=== PATIENT | female | born 1970 | race Caucasian/White ===

== ENCOUNTER 2019-01-15 16:22 | Emergency (ER) | payer SELFPAY ==
[2019-01-15] MEDS ORDERED: methylPREDNISolone Sodium Succinate 125 MG/2 ML SDV IM ONE (16:57)
[2019-01-15] MEDS ORDERED: Albuterol/Ipratropium 3.0-0.5 MG/3 ML Neb Soln NEB ONE (16:57)
--- NOTE | 2019-01-15 16:59 | EDM.PDOC ---
ED HPI GENERAL MEDICAL PROBLEM - General Chief Complaint: Respiratory Problem Stated Complaint: SHORTNESS OF BREATH Time Seen by Provider: 01/15/19 16:58 Source of Information: Reports: Patient - History of Present Illness INITIAL COMMENTS - FREE TEXT/NARRATIVE: HISTORY AND PHYSICAL: History of present illness: [Patient with asthma presents with shortness of breath or wheeze, she has been out of her HFA inhaler for a week No fever nausea vomiting chills sweats no chest pain headache dizziness palpitation no bowel or urine symptoms ] Review of systems: As per history of present illness and below otherwise all systems reviewed and negative. Past medical history: As per history of present illness and as reviewed below otherwise noncontributory. Surgical history: As per history of present illness and as reviewed below otherwise noncontributory. Social history: No reported history of drug or alcohol abuse. Family history: As per history of present illness and as reviewed below otherwise noncontributory. Physical exam: HEENT: Atraumatic, normocephalic, pupils reactive, negative for conjunctival pallor or scleral icterus, mucous membranes moist, throat clear, neck supple, nontender, trachea midline. Lungs: Clear to auscultation, breath sounds equal bilaterally, chest nontender. Post DuoNeb and Solu-Medrol Heart: S1S2, regular, negative for clicks, rubs, or JVD. Abdomen: Soft, nondistended, nontender. Negative for masses or hepatosplenomegaly. Negative for costovertebral tenderness. Pelvis: Stable nontender. Genitourinary: Deferred. Rectal: Deferred. Extremities: Atraumatic, negative for cords or calf pain. Neurovascular unremarkable. Neuro: Awake, alert, oriented. Cranial nerves II through XII unremarkable. Cerebellum unremarkable. Motor and sensory unremarkable throughout. Exam nonfocal. Diagnostics: [Chest 1 view ] Therapeutics: [DuoNeb Solu-Medrol ] HFA Prednisone Impression: [ asthma exacerbation Medication noncompliance ] Definitive disposition and diagnosis as appropriate pending reevaluation and review of above. - Related Data Allergies Allergy/AdvReac Type Severity Reaction Status Date / Time No Known Allergies Allergy Verified 01/15/19 16:46 Home Meds: Home Meds Albuterol [Proventil HFA] 2 puff INH Q4HR PRN 01/15/19 [History] Albuterol [Proventil Neb Soln] 1 vial INH ASDIRECTED PRN 01/15/19 [History] Past Medical History Respiratory History: Reports: Asthma - Past Surgical History Female Surgical History: Reports: Section Other Musculoskeletal Surgeries/Procedures:: L hip and femur repair Social & Family History - Tobacco Use Smoking Status *Q: Former Smoker Used Tobacco, but Quit: Yes Month/Year Tobacco Last Used: 2016 - Recreational Drug Use Recreational Drug Use: No ED ROS GENERAL - Review of Systems Review Of Systems: See Below ED EXAM, GENERAL - Physical Exam Exam: See Below Course - Vital Signs Last Recorded V/S: Last Vital Signs Temp 97.8 F 01/15/19 16:44 Pulse 88 01/15/19 17:45 Resp 20 01/15/19 17:45 BP 149/89 H 01/15/19 17:45 Pulse Ox 95 01/15/19 17:45 - Orders/Labs/Meds Meds: Medications Discontinued Medications Generic Name Dose Route Start Last Admin Trade Name Freq PRN Reason Stop Dose Admin Albuterol/Ipratropium 3 ml 01/15/19 16:57 01/15/19 17:12 Duoneb 3.0-0.5 Mg/3 Ml NEB 01/15/19 16:58 3 ml ONETIME ONE Administration Methylprednisolone Sodium Succinate 125 mg 01/15/19 16:57 01/15/19 17:17 Solu-Medrol IM 01/15/19 16:58 125 mg ONETIME ONE Administration Departure - Departure Time of Disposition: 06:59 Disposition: Home, Self-Care 01 Clinical Impression: Asthma - Discharge Information Instructions: Asthma, Adult, [id number] Referrals: PCP,None [Primary Care Provider] - Forms: ED Department Discharge
--- NOTE | 2019-01-15 17:49 | CR ---
INDICATION: Short of breath. CHEST, ONE VIEW An AP radiograph of the chest was performed. Comparison: No previous studies are currently available for comparison. The lungs appear clear and no pleural effusions are identified. The cardiomediastinal silhouette and pulmonary vasculature appear normal, as do the visualized bones. IMPRESSION: No acute intrathoracic abnormality identified. BALDOMERO WADE MD [employer] Dictated by: Vitor Wade MD @ 01/15/2019 17:46:38 (Electronically Signed)
== END 2019-01-15 17:45 | disposition home or self-care (01) ==
LOC: MW.ED 16:22
DX: J45.901 Unspecified asthma with (acute) exacerbation (principal); Z87.891 Personal history of nicotine dependence
CPT/HCPCS: 71045; 71045-26; 94640; 96372; 99285-25; J2930; J7620-GY

== ENCOUNTER 2019-02-16 14:35 | Emergency (ER) | payer SELFPAY ==
[2019-02-16] MEDS ORDERED: Albuterol/Ipratropium 3.0-0.5 MG/3 ML Neb Soln ONE (14:44)
[2019-02-16] MEDS ORDERED: Albuterol/Ipratropium 3.0-0.5 MG/3 ML Neb Soln NEB ONE (14:44)
--- NOTE | 2019-02-16 14:45 | EDM.PDOC ---
ED HPI GENERAL MEDICAL PROBLEM - General Chief Complaint: Respiratory Problem Stated Complaint: UNABLE TO BREATH Time Seen by Provider: 02/16/19 14:41 - History of Present Illness INITIAL COMMENTS - FREE TEXT/NARRATIVE: HISTORY AND PHYSICAL: History of present illness: Patient's 48-year-old black female with history of asthma who states she has misplaced her inhaler and comes in with wheezing shortness of breath she denies other concern no fever chills nausea vomiting or chest pain Review of systems: As per history of present illness and below otherwise all systems reviewed and negative. Past medical history: As per history of present illness and as reviewed below otherwise noncontributory. Surgical history: As per history of present illness and as reviewed below otherwise noncontributory. Social history: No reported history of drug or alcohol abuse. Family history: As per history of present illness and as reviewed below otherwise noncontributory. Physical exam: HEENT: Atraumatic, normocephalic, pupils reactive, negative for conjunctival pallor or scleral icterus, mucous membranes moist, throat clear, neck supple, nontender, trachea midline. Lungs: Slightly diminished rare end expiratory wheezing noted bilaterally no crackles, breath sounds equal bilaterally, chest nontender. Heart: S1S2, regular, negative for clicks, rubs, or JVD. Abdomen: Soft, nondistended, nontender. Negative for masses or hepatosplenomegaly. Negative for costovertebral tenderness. Pelvis: Stable nontender. Genitourinary: Deferred. Rectal: Deferred. Extremities: Atraumatic, negative for cords or calf pain. Neurovascular unremarkable. Neuro: Awake, alert, oriented. Cranial nerves II through XII unremarkable. Cerebellum unremarkable. Motor and sensory unremarkable throughout. Exam nonfocal. Diagnostics: None Therapeutics: Albuterol ipratropium nebulizer Impression: #1 asthmatic exacerbation #2 medication refill Definitive disposition and diagnosis as appropriate pending reevaluation and review of above. - Related Data Allergies Allergy/AdvReac Type Severity Reaction Status Date / Time No Known Allergies Allergy Verified 01/15/19 16:46 Home Meds: Home Meds Albuterol [Proventil HFA] 2 puff INH Q4HR PRN 01/15/19 [History] Albuterol [Proventil Neb Soln] 1 vial INH ASDIRECTED PRN 01/15/19 [History] Past Medical History Respiratory History: Reports: Asthma - Past Surgical History Female Surgical History: Reports: Section Other Musculoskeletal Surgeries/Procedures:: L hip and femur repair ED ROS GENERAL - Review of Systems Review Of Systems: ROS reveals no pertinent complaints other than HPI. ED EXAM, GENERAL - Physical Exam Exam: See Below (Dictation) Departure - Departure Time of Disposition: 14:44 Disposition: Home, Self-Care 01 Condition: Good Clinical Impression: Acute asthma, Medication refill - Discharge Information Referrals: PCP,Unknown [Primary Care Provider] - Additional Instructions: The following information is given to patients seen in the emergency department who are being discharged to home. This information is to outline your options for follow-up care. We provide all patients seen in our emergency department with a follow-up referral. The need for follow-up, as well as the timing and circumstances, are variable depending upon the specifics of your emergency department visit. If you don't have a primary care physician on staff, we will provide you with a referral. We always advise you to contact your personal physician following an emergency department visit to inform them of the circumstance of the visit and for follow-up with them and/or the need for any referrals to a consulting specialist. The emergency department will also refer you to a specialist when appropriate. This referral assures that you have the opportunity for followup care with a specialist. All of these measure are taken in an effort to provide you with optimal care, which includes your followup. Under all circumstances we always encourage you to contact your private physician who remains a resource for coordinating your care. When calling for followup care, please make the office aware that this follow-up is from your recent emergency room visit. If for any reason you are refused follow-up, please contact the [facility] emergency department at and asked to speak to the emergency department charge nurse. Albuterol as prescribed follow-up primary medical doctor as needed as discussed return as needed as discussed
== END 2019-02-16 15:09 | disposition home or self-care (01) ==
LOC: MW.ED 14:35
DX: J45.901 Unspecified asthma with (acute) exacerbation (principal); Z76.0 Encounter for issue of repeat prescription; Z79.899 Other long term (current) drug therapy
CPT/HCPCS: 99284-25; J7620-GY

== ENCOUNTER 2020-03-21 09:33 | Emergency (ER) | payer BC ==
[2020-03-21] MEDS ORDERED: Ketorolac 15 MG/ML SDV IVPUSH ONE (10:13)
[2020-03-21] MEDS ORDERED: Prochlorperazine 10 MG/2 ML SDV IVPUSH ONE (10:14)
[2020-03-21] MEDS ORDERED: HYDROmorphone 2 MG/ML Syringe IVPUSH ONE (10:14)
--- NOTE | 2020-03-21 10:17 | EDM.PDOC ---
ED [facility] GENERAL MEDICAL PROBLEM - General Chief Complaint: Abdominal Pain Stated Complaint: STOMACH PAIN Time Seen by Provider: 03/21/20 09:39 - History of Present Illness INITIAL COMMENTS - FREE TEXT/NARRATIVE: HISTORY AND PHYSICAL: History of present illness: This 49-year-old female with a past medical history of BMI greater than 45, presents emergency department complaining of a sudden onset of left upper quadrant abdominal pain. This began at 5:30 AM and awoke her from her sleep as she was about ready to get up for work this morning. She denies any nausea, vomiting or diarrhea. She states that the pain is a throbbing sensation and is in the left upper quadrant and also may be in the left lower quadrant. It does not go to the back. No vaginal or urinary symptoms. No hematemesis, hematochezia or melena. The patient does smoke and occasionally drinks alcohol. She denies use of drugs. No other associated signs or symptoms. No other modifying, aggravating or alleviating factors. Review of systems: A 10-point review of systems, other than pertinent positives and negatives as stated per HPI, is otherwise negative. Past medical history: As per history of present illness and as reviewed below otherwise noncontributory. Surgical history: As per history of present illness and as reviewed below otherwise noncontributory. Social history: No reported history of drug or alcohol abuse. Family history: As per history of present illness and as reviewed below otherwise noncontributory. Physical exam: VITAL SIGNS: Reviewed. GENERAL: Appears to be in acute pain and rubs the left upper quadrant. Ot herwise appears nontoxic and stable. Heart rate appears normal. This is on the monitor. HEAD: No signs of head trauma. EYES: Pupils are equal. Extraocular motions intact. EARS: Hearing grossly intact. MOUTH: Oropharynx is normal. NECK: No adenopathy, no JVD. CHEST: Chest with clear breath sounds bilaterally. No wheezes, rales, or rhonchi. CARDIAC: Regular rate and rhythm. Normal S1 and S2, without murmurs, gallops, or rubs. VASCULAR: Peripheral pulses normal and equal in all extremities. ABDOMEN: Soft, left upper quadrant tenderness, no rebound or guarding, no pulsatile masses. MUSCULOSKELETAL: Good range of motion of all major joints. Extremities without clubbing, cyanosis or edema. NEUROLOGIC EXAM: Alert and oriented x 3. No focal sensory or motor deficits. Speech normal. Follows commands. PSYCHIATRIC: Mood normal. SKIN: No rash or lesions. Initial Differential Diagnosis & Plan: The differential diagnosis would include appendicitis, cholecystitis, pyelonephritis, pancreatitis, mesenteric infarction, diverticulitis, small bowel obstruction, volvulus, and ACS. Suspicious for constipation versus diverticulitis. This could also be secondary to urolithiasis. I will obtain a CT scan, labs, and reevaluate. Definitive disposition and diagnosis as appropriate pending reevaluation and review of above. abdomen Pain Score (Numeric/FACES): 10 - Related Data Allergies Allergy/AdvReac Type Severity Reaction Status Date / Time No Known Allergies Allergy Verified 03/21/20 09:55 Home Meds: Home Meds Albuterol [Proventil HFA] 2 puff INH Q4HR PRN 01/15/19 [History] Albuterol [Proventil Neb Soln] 1 vial INH ASDIRECTED PRN 01/15/19 [History] Diclofenac Potassium [Cataflam] 50 mg PO BID #60 tab 03/21/20 [Rx] Morphine 15 mg PO Q4H PRN 3 Days #7 tab 03/21/20 [Rx] Psyllium Husk (With Sugar) [Metamucil Powder] 2 tbsp PO TID 14 Days #1042 powder 03/21/20 [Rx] Sulfamethoxazole/Trimethoprim [Bactrim Ds Tablet] 1 each PO BID 14 Days #7 tablet 03/21/20 [Rx] Past Medical History Respiratory History: Reports: Asthma Genitourinary History: Reports: None [employer] History: Reports: Musculoskeletal History: Reports: None - Past Surgical History Respiratory Surgical History: Reports: None Female Surgical History: Reports: Section Other Musculoskeletal Surgeries/Procedures:: L hip and femur repair Social & Family History - Family History Family Medical History: Noncontributory - Tobacco Use Smoking Status *Q: Current Some Day Smoker Years of Tobacco use: 2 Packs/Tins Daily: 0.1 - Caffeine Use Caffeine Use: Reports: None - Recreational Drug Use Recreational Drug Use: No ED ROS GENERAL - Review of Systems Review Of Systems: See Below (noted) ED EXAM, GI/ABD - Physical Exam Exam: See Below (noted) Course - Vital Signs Last Recorded V/S: Last Vital Signs Temp 96.2 F L 03/21/20 09:47 Pulse 73 03/21/20 11:15 Resp 17 03/21/20 11:15 BP 140/95 H 03/21/20 11:15 Pulse Ox 94 L 03/21/20 11:15 - Orders/Labs/Meds Orders: Active Orders 24 hr Category Date Time Status EKG 12 Lead [EKG Documentation Completion] [RC] STAT Care 03/21/20 10:13 Active UA RFX MARYANN AND CULT IF INDIC [URIN] Stat Lab 03/21/20 10:13 Ordered Labs: Laboratory Tests 03/21/20 03/21/20 Range/Units 10:19 10:19 WBC 8.04 (4.0-11.0) K/uL RBC 4.91 (4.30-5.90) M/uL Hgb 13.7 (12.0-16.0) g/dL Hct 42.7 (36.0-46.0) % MCV 87.0 (80.0-98.0) fL MCH 27.9 (27.0-32.0) pg MCHC 32.1 (31.0-37.0) g/dL RDW Std Deviation 45.8 (28.0-62.0) fl RDW Coeff of Graciela 14 (11.0-15.0) % Plt Count 218 (150-400) K/uL MPV 10.60 (7.40-12.00) fL Neut % (Auto) 60.9 (48.0-80.0) % Lymph % (Auto) 28.0 (16.0-40.0) % Holt % (Auto) 8.3 (0.0-15.0) % Eos % (Auto) 2.6 (0.0-7.0) % Baso % (Auto) 0.2 (0.0-1.5) % Neut # (Auto) 4.9 (1.4-5.7) K/uL Lymph # (Auto) 2.3 (0.6-2.4) K/uL Holt # (Auto) 0.7 (0.0-0.8) K/uL Eos # (Auto) 0.2 (0.0-0.7) K/uL Baso # (Auto) 0.0 (0.0-0.1) K/uL Nucleated RBC % 0.0 /100WBC Nucleated RBCs # 0 K/uL Sodium 137 (136-145) mmol/L Potassium 4.0 (3.5-5.1) mmol/L Chloride 102 (98-107) mmol/L Carbon Dioxide 27.2 (21.0-32.0) mmol/L BUN 8 (7.0-18.0) mg/dL Creatinine 0.8 (0.6-1.0) mg/dL Est Cr Clr Drug Dosing 71.14 mL/min Estimated GFR (MDRD) > 60.0 ml/min Glucose 68 L (74-106) mg/dL Calcium 9.0 (8.5-10.1) mg/dL Total Bilirubin 0.3 (0.2-1.0) mg/dL AST 16 (15-37) IU/L ALT 16 (14-63) IU/L Alkaline Phosphatase 76 (46-116) U/L Troponin I < 0.050 (0.000-0.056) ng/mL Total Protein 7.0 (6.4-8.2) g/dL Albumin 3.3 L (3.4-5.0) g/dL Globulin 3.7 (2.6-4.0) g/dL Albumin/Globulin Ratio 0.9 (0.9-1.6) HCG, Quant 1.0 mIU/mL Meds: Medications Discontinued Medications Generic Name Dose Route Start Last Admin Trade Name Freq PRN Reason Stop Dose Admin Hydromorphone HCl 1 mg 03/21/20 10:14 03/21/20 10:34 [facility]/21[facility] 10[facility]15 1 mg ONETIME ONE Administration Ketorolac Tromethamine 15 mg 03/21/20 10:13 03/21/20 10:26 Toradol IVPUSH 03/21/20 10:14 15 mg ONETIME ONE Administration Prochlorperazine Edisylate 10 mg 03/21/20 10:14 03/21/20 10:36 Compazine IVPUSH 03/21/20 10:15 10 mg ONETIME ONE Administration Departure - Departure Time of Disposition: 12:10 Disposition: Home, Self-Care 01 Clinical Impression: Urolithiasis, Sigmoid diverticulitis - Discharge Information *PRESCRIPTION DRUG MONITORING PROGRAM REVIEWED*: Not Applicable *COPY OF PRESCRIPTION DRUG MONITORING REPORT IN PATIENT ESTELITA: Not Applicable Referrals: Julisa Parisi NP [Primary Care Provider] - Forms: ED Department Discharge Additional Instructions: The following information is given to patients seen in the emergency department who are being discharged to home. This information is to outline your options for follow-up care. We provide all patients seen in our emergency department with a follow-up referral. The need for follow-up, as well as the timing and circumstances, are variable depending upon the specifics of your emergency department visit. If you don't have a primary care physician on staff, we will provide you with a referral. We always advise you to contact your personal physician following an emergency department visit to inform them of the circumstance of the visit and for follow-up with them and/or the need for any referrals to a consulting specialist. The emergency department will also refer you to a specialist when appropriate. This referral assures that you have the opportunity for follow-up care with a specialist. All of these measure are taken in an effort to provide you with optimal care, which includes your follow-up. Thank you for coming to the [facility] urgency department for your care today. It was Dr. Doan's pleasure to take care of you. [facility] - Urology [address] [place] [address] [facility] - Primary Care [address] [place] [id number] [address] [place] [phone] You have a small kidney stone. This should pass on its own. I have given you medications for this. Please return for uncontrolled pain, vomiting or any other concerns. Your CT scan also shows mild diverticulitis. You require a follow-up colonoscopy to make sure that this is not cancer of the colon. Please see your doctor for this follow-up. Under all circumstances we always encourage you to contact your private physician who remains a resource for coordinating your care. When calling for follow-up care, please make the office aware that this follow-up is from your recent emergency room visit. If for any reason you are refused follow-up, please contact the [facility] Emergency Department at and asked to speak to the emergency department charge nurse. Sepsis Event Note (ED) - Evaluation Sepsis Screening Result: No Definite Risk - Focused Exam Vital Signs: Vital Signs Temp Pulse Resp BP Pulse Ox 03/21/20 11:15 73 17 140/95 H 94 L 03/21/20 10:00 83 18 166/92 H 95 03/21/20 09:47 96.2 F L 86 20 162/99 H 98 - My Orders Last 24 Hours: My Active Orders 03/21/20 10:13 EKG 12 Lead [EKG Documentation Completion] [RC] STAT UA RFX MARYANN AND CULT IF INDIC [URIN] Stat - Assessment/Plan Last 24 Hours: My Active Orders 03/21/20 10:13 EKG 12 Lead [EKG Documentation Completion] [RC] STAT UA RFX MARYANN AND CULT IF INDIC [URIN] Stat
[2020-03-21 11:12] LABS: BLOOD UREA NITROGEN,BUN 8 mg/dL (7.0-18.0); CARBON DIOXIDE,CO2 27.2 mmol/L (21.0-32.0); CHLORIDE,CL 102 mmol/L (98-107); GLUCOSE RANDOM 68 mg/dL (74-106); SODIUM,NA 137 mmol/L (136-145)
--- NOTE | 2020-03-21 11:31 | CT ---
CT abdomen and pelvis Technique: Multiple axial sections were obtained from above the dome of the diaphragm inferiorly through the pubic symphysis. Intravenous and oral contrast not utilized. Very small calcification is seen within the midabdomen questionably representing a partially obstructing mid left ureteral stone. This finding measures about 1.5 mm. No additional ureteral calculi are definitely seen. No renal calculi are seen. Visualized lung bases contain no focal abnormality. Liver shows no focal abnormality. Spleen appears within normal limits. Adrenal glands show no nodule. Pancreas shows no discrete abnormality. Aorta shows no aneurysm. Gallbladder contains no calcified gallstones. No retroperitoneal adenopathy or mesenteric abnormalities are seen. Fat-containing umbilical hernia is noted. Equivocal inflammatory change around a diverticula is seen within the sigmoid region. Difficult to exclude minimal diverticulitis. No additional pelvic finding is seen. Bone window settings were reviewed which show scattered degenerative change within the spine. Impression: 1. Questionable small 1.5 mm partially obstructing calculus within the mid left ureter. If patient has no correlating symptoms this could represent a superimposed small vascular calcification. 2. Questionable very mild diverticulitis within the sigmoid colon. Again, please correlate clinically. 3. Other findings which are not acute as noted above. Diagnostic code #3 This report was dictated in MDT
--- NOTE | 2020-03-21 12:18 | PCM.SN.2 ---
- Free Text/Narrative Note: 12 lead EKG interpretation Obtained: March 21, 2020 at 10:33 AM Rhythm: Sinus Rate: 77 [address] [place]: Normal Intervals: Normal ST/T Segments: Nonspecific T wave changes Interpretation: Sinus rhythm with nonspecific T wave changes
== END 2020-03-21 13:04 | disposition home or self-care (01) ==
LOC: MW.ED 09:33
DX: K57.32 Diverticulitis of large intestine without perforation or abscess without bleeding (principal); N20.1 Calculus of ureter; J45.909 Unspecified asthma, uncomplicated; F17.210 Nicotine dependence, cigarettes, uncomplicated; Z79.899 Other long term (current) drug therapy
CPT/HCPCS: 36415; 74176; 80053; 84484; 84702; 85025; 93005; 96374; 96375; 99284; J0780; J1170; J1885; 99283

== ENCOUNTER 2020-06-15 20:58 | Emergency (ER) | payer BC ==
[2020-06-15] MEDS ORDERED: Dicyclomine 10 MG Cap PO ONE (21:19)
[2020-06-15] MEDS ORDERED: Sodium Chloride 0.9% 10 ML Syringe FLUSH PRN (21:19)
[2020-06-15] MEDS ORDERED: Sodium Chloride 0.9% 2.5 ML Syringe FLUSH PRN (21:19)
[2020-06-15] MEDS ORDERED: Lactated Ringers 1,000 ML IV ONE (21:50)
[2020-06-15] MEDS ORDERED: Ondansetron 4 MG/2 ML SDV IVPUSH ONE (21:50)
[2020-06-15] MEDS ORDERED: Ketorolac 30 MG/ML SDV IVPUSH ONE (21:50)
--- NOTE | 2020-06-15 21:50 | EDM.PDOC ---
ED HPI GENERAL MEDICAL PROBLEM - General Chief Complaint: Abdominal Pain Stated Complaint: STOMACK PAIN Time Seen by Provider: 06/15/20 21:20 Source of Information: Reports: Patient History Limitations: Reports: No Limitations - History of Present Illness INITIAL COMMENTS - FREE TEXT/NARRATIVE: 49 yo F with history of diverticulitis, left-sided kidney stone presents with acute onset left flank pain that radiates to the left lower quadrant at 2 PM, described as throbbing, severe, rated 8/10, waxes and wanes, no alleviating or exacerbating factors. Associated with nausea, vomiting. She denies fever, chills, dysuria, hematuria, chest pain, shortness of breath. ROS: A 10-point review of systems, other than pertinent positives and negatives as stated per HPI, is otherwise negative Past medical history: No additional pertinent history Past Surgical history: No additional pertinent history Social history: No additional pertinent history Family history: No additional pertinent history PHYSICAL EXAM General: AOx4, GCS = 15, No distress, BMI 47 HEENT: dry mucous membrane Neck: supple, no meningismus, no Kernig or Brudzinski Cardiac: S1S2 RRR Respiratory: CTAB, no crackles or rales, no wheezing Abdomen: Soft, nontender, no rebound or guarding, nondistended, no pulsatile mass. Back: nontender Musculoskeletal: NVI distally, no deformity Neuro: No focal deficits, CN 2 - 12 WNL. Lower Abdomen Pain Score (Numeric/FACES): 8 - Related Data Allergies Allergy/AdvReac Type Severity Reaction Status Date / Time No Known Allergies Allergy Verified 06/15/20 21:18 Home Meds: Home Meds Albuterol [Proventil Neb Soln] 1 vial INH ASDIRECTED PRN 01/15/19 [History] Phenazopyridine [Pyridium] 100 mg PO TID PRN #15 tab 06/15/20 [Rx] cephALEXin [Keflex] 500 mg PO Q8H #15 cap 06/15/20 [Rx] Past Medical History - Past Health History Medical/Surgical History: Denies Medical/Surgical History Respiratory History: Reports: Asthma Genitourinary History: Reports: None REGISTERED MEDICAL ASSISTANT History: Reports: Musculoskeletal History: Reports: None - Infectious Disease History Infectious Disease History: Reports: None - Past Surgical History Respiratory Surgical History: Reports: None Female Surgical History: Reports: Section Other Musculoskeletal Surgeries/Procedures:: L hip and femur repair Social & Family History - Family History Family Medical History: No Pertinent Family History - Tobacco Use Tobacco Use Status *Q: Current Every Day Tobacco User Years of Tobacco use: 8 Packs/Tins Daily: 1 - Caffeine Use Caffeine Use: Reports: Coffee - Recreational Drug Use Recreational Drug Use: No ED ROS GENERAL - Review of Systems Review Of Systems: See Below (see dictation) ED EXAM, GENERAL - Physical Exam Exam: See Below (see dictation) Course - Vital Signs Last Recorded V/S: Last Vital Signs Temp 96.6 F L 06/15/20 21:19 Pulse 77 06/15/20 23:00 Resp 16 06/15/20 23:00 BP 134/89 06/15/20 23:00 Pulse Ox 95 06/15/20 23:00 - Orders/Labs/Meds Orders: Active Orders 24 hr Category Date Time Status Sodium Chloride 0.9% [Saline Flush] Med 06/15/20 21:19 Active 10 ml FLUSH ASDIRECTED PRN Sodium Chloride 0.9% [Saline Flush] Med 06/15/20 21:19 Active 2.5 ml FLUSH ASDIRECTED PRN cefTRIAXone [Rocephin in Dextrose,Iso-Osm 1 GM/50 ML] 1 Med 06/15/20 23:45 Ordered gm Premix Bag 1 bag IV ONETIME Saline Lock Insert [OM.PC] Stat Oth 06/15/20 21:19 Ordered Medication Orders Sodium Chloride (Saline Flush) 10 ml FLUSH ASDIRECTED PRN PRN Reason: Keep Vein Open Last Admin: 06/15/20 21:33 Dose: 10 ml Documented by: LASHAE Sodium Chloride (Saline Flush) 2.5 ml FLUSH ASDIRECTED PRN PRN Reason: Keep Vein Open Last Admin: 06/15/20 21:33 Dose: 2.5 ml Documented by: LASHAE Labs: Laboratory Tests 06/15/20 06/15/20 06/15/20 Range/Units 21:31 21:31 21:31 WBC 9.01 (4.0-11.0) K/uL RBC 5.07 (4.30-5.90) M/uL Hgb 14.5 (12.0-16.0) g/dL Hct 44.3 (36.0-46.0) % MCV 87.4 (80.0-98.0) fL MCH 28.6 (27.0-32.0) pg MCHC 32.7 (31.0-37.0) g/dL RDW Std Deviation 44.2 (28.0-62.0) fl RDW Coeff of Graciela 14 (11.0-15.0) % Plt Count 230 (150-400) K/uL MPV 10.00 (7.40-12.00) fL Neut % (Auto) 67.1 (48.0-80.0) % Lymph % (Auto) 24.4 (16.0-40.0) % [place] % (Auto) 7.0 (0.0-15.0) % Eos % (Auto) 1.3 (0.0-7.0) % Baso % (Auto) 0.2 (0.0-1.5) % Neut # (Auto) 6.0 H (1.4-5.7) K/uL Lymph # (Auto) 2.2 (0.6-2.4) K/uL [place] # (Auto) 0.6 (0.0-0.8) K/uL Eos # (Auto) 0.1 (0.0-0.7) K/uL Baso # (Auto) 0.0 (0.0-0.1) K/uL Nucleated RBC % 0.0 /100WBC Nucleated RBCs # 0 K/uL INR 1.05 Lactate 1.1 (0.20-2.00) mmol/L Sodium (136-145) mmol/L Potassium (3.5-5.1) mmol/L Chloride (98-107) mmol/L Carbon Dioxide (21.0-32.0) mmol/L BUN (7.0-18.0) mg/dL Creatinine (0.6-1.0) mg/dL Est Cr Clr Drug Dosing mL/min Estimated GFR (MDRD) ml/min Glucose (74-106) mg/dL Calcium (8.5-10.1) mg/dL Total Bilirubin (0.2-1.0) mg/dL AST (15-37) IU/L ALT (14-63) IU/L Alkaline Phosphatase (46-116) U/L Total Protein (6.4-8.2) g/dL Albumin (3.4-5.0) g/dL Globulin (2.6-4.0) g/dL Albumin/Globulin Ratio (0.9-1.6) Lipase (73-393) U/L HCG, Qual (NEG) Urine Color Urine Appearance Urine pH (5.0-8.0) Ur Specific [place] (1.001-1.035) Urine Protein (NEGATIVE) mg/dL Urine Glucose (UA) (NEGATIVE) mg/dL Urine Ketones (NEGATIVE) mg/dL Urine Occult Blood (NEGATIVE) Urine Nitrite (NEGATIVE) Urine Bilirubin (NEGATIVE) Urine Urobilinogen (<2.0) EU/dL Ur Leukocyte Esterase (NEGATIVE) Urine RBC (0-2/HPF) Urine WBC (0-5/HPF) Ur Epithelial Cells (NONE-FEW) Urine Bacteria (NEGATIVE) Urine Mucus (NONE-MOD) Urine HCG, Qual (NEGATIVE) 06/15/20 06/15/20 06/15/20 Range/Units 21:31 21:31 23:00 WBC (4.0-11.0) K/uL RBC (4.30-5.90) M/uL Hgb (12.0-16.0) g/dL Hct (36.0-46.0) % MCV (80.0-98.0) fL MCH (27.0-32.0) pg MCHC (31.0-37.0) g/dL RDW Std Deviation (28.0-62.0) fl RDW Coeff of Graciela (11.0-15.0) % Plt Count (150-400) K/uL MPV (7.40-12.00) fL Neut % (Auto) (48.0-80.0) % Lymph % (Auto) (16.0-40.0) % [place]rick % (Auto) (0.0-15.0) % Eos % (Auto) (0.0-7.0) % Baso % (Auto) (0.0-1.5) % Neut # (Auto) (1.4-5.7) K/uL Lymph # (Auto) (0.6-2.4) K/uL [place] # (Auto) (0.0-0.8) K/uL Eos # (Auto) (0.0-0.7) K/uL Baso # (Auto) (0.0-0.1) K/uL Nucleated RBC % /100WBC Nucleated RBCs # K/uL INR Lactate (0.20-2.00) mmol/L Sodium 139 (136-145) mmol/L Potassium 3.9 (3.5-5.1) mmol/L Chloride 100 (98-107) mmol/L Carbon Dioxide 28.6 (21.0-32.0) mmol/L BUN 4 L (7.0-18.0) mg/dL Creatinine 0.7 (0.6-1.0) mg/dL Est Cr Clr Drug Dosing 81.30 mL/min Estimated GFR (MDRD) > 60.0 ml/min Glucose 101 (74-106) mg/dL Calcium 8.9 (8.5-10.1) mg/dL Total Bilirubin 0.5 (0.2-1.0) mg/dL AST 14 L (15-37) IU/L ALT 17 (14-63) IU/L Alkaline Phosphatase 93 (46-116) U/L Total Protein 7.4 (6.4-8.2) g/dL Albumin 3.4 (3.4-5.0) g/dL Globulin 4.0 (2.6-4.0) g/dL Albumin/Globulin Ratio 0.9 (0.9-1.6) Lipase 46 L (73-393) U/L HCG, Qual NEGATIVE (NEG) Urine Color YELLOW Urine Appearance SLT CLOUDY Urine pH 8.5 H (5.0-8.0) Ur Specific [place] 1.015 (1.001-1.035) Urine Protein NEGATIVE (NEGATIVE) mg/dL Urine Glucose (UA) NEGATIVE (NEGATIVE) mg/dL Urine Ketones NEGATIVE (NEGATIVE) mg/dL Urine Occult Blood TRACE-INTACT H (NEGATIVE) Urine Nitrite NEGATIVE (NEGATIVE) Urine Bilirubin NEGATIVE (NEGATIVE) Urine Urobilinogen 0.2 (<2.0) EU/dL Ur Leukocyte Esterase MODERATE H (NEGATIVE) Urine RBC 1-3 (0-2/HPF) Urine WBC 25-30 (0-5/HPF) Ur Epithelial Cells RARE (NONE-FEW) Urine Bacteria FEW (NEGATIVE) Urine Mucus LIGHT (NONE-MOD) Urine HCG, Qual (NEGATIVE) 06/15/20 Range/Units 23:00 WBC (4.0-11.0) K/uL RBC (4.30-5.90) M/uL Hgb (12.0-16.0) g/dL Hct (36.0-46.0) % MCV (80.0-98.0) fL MCH (27.0-32.0) pg MCHC (31.0-37.0) g/dL RDW Std Deviation (28.0-62.0) fl RDW Coeff of Graciela (11.0-15.0) % Plt Count (150-400) K/uL MPV (7.40-12.00) fL Neut % (Auto) (48.0-80.0) % Lymph % (Auto) (16.0-40.0) % [place] % (Auto) (0.0-15.0) % Eos % (Auto) (0.0-7.0) % Baso % (Auto) (0.0-1.5) % Neut # (Auto) (1.4-5.7) K/uL Lymph # (Auto) (0.6-2.4) K/uL [place] # (Auto) (0.0-0.8) K/uL Eos # (Auto) (0.0-0.7) K/uL Baso # (Auto) (0.0-0.1) K/uL Nucleated RBC % /100WBC Nucleated RBCs # K/uL INR Lactate (0.20-2.00) mmol/L Sodium (136-145) mmol/L Potassium (3.5-5.1) mmol/L Chloride (98-107) mmol/L Carbon Dioxide (21.0-32.0) mmol/L BUN (7.0-18.0) mg/dL Creatinine (0.6-1.0) mg/dL Est Cr Clr Drug Dosing mL/min Estimated GFR (MDRD) ml/min Glucose (74-106) mg/dL Calcium (8.5-10.1) mg/dL Total Bilirubin (0.2-1.0) mg/dL AST (15-37) IU/L ALT (14-63) IU/L Alkaline Phosphatase (46-116) U/L Total Protein (6.4-8.2) g/dL Albumin (3.4-5.0) g/dL Globulin (2.6-4.0) g/dL Albumin/Globulin Ratio (0.9-1.6) Lipase (73-393) U/L HCG, Qual (NEG) Urine Color Urine Appearance Urine pH (5.0-8.0) Ur Specific [place] (1.001-1.035) Urine Protein (NEGATIVE) mg/dL Urine Glucose (UA) (NEGATIVE) mg/dL Urine Ketones (NEGATIVE) mg/dL Urine Occult Blood (NEGATIVE) Urine Nitrite (NEGATIVE) Urine Bilirubin (NEGATIVE) Urine Urobilinogen (<2.0) EU/dL Ur Leukocyte Esterase (NEGATIVE) Urine RBC (0-2/HPF) Urine WBC (0-5/HPF) Ur Epithelial Cells (NONE-FEW) Urine Bacteria (NEGATIVE) Urine Mucus (NONE-MOD) Urine HCG, Qual NEGATIVE (NEGATIVE) Meds: Medications Generic Name Dose Route Start Last Admin Trade Name Frenavarro PRN Reason Stop Dose Admin Sodium Chloride 10 ml 06/15/20 21:19 06/15/20 21:33 Saline Flush FLUSH 10 ml ASDIRECTED PRN Administration Keep Vein Open Sodium Chloride 2.5 ml 06/15/20 21:19 06/15/20 21:33 Saline Flush FLUSH 2.5 ml ASDIRECTED PRN Administration Keep Vein Open Discontinued Medications Generic Name Dose Route Start Last Admin Trade Name Freq PRN Reason Stop Dose Admin Dicyclomine HCl 20 mg 06/15/20 21:19 06/15/20 21:25 Bentyl PO 06/15/20 21:20 20 mg ONETIME ONE Administration Lactated Ringer's 1,000 mls @ 999 mls/hr 06/15/20 21:50 06/15/20 22:12 Ringers, Lactated IV 06/15/20 22:50 999 mls/hr .BOLUS ONE Administration Ketorolac Tromethamine 30 mg 06/15/20 21:50 06/15/20 22:12 Toradol IVPUSH 06/15/20 21:51 30 mg ONETIME ONE Administration Morphine Sulfate 4 mg 06/15/20 23:06 06/15/20 23:14 Morphine IVPUSH 06/15/20 23:07 4 mg ONETIME ONE Administration Ondansetron HCl 4 mg 06/15/20 21:50 06/15/20 22:12 Zofran IVPUSH 06/15/20 21:51 4 mg ONETIME ONE Administration - Re-Assessments/Exams Free Text/Narrative Re-Assessment/Exam: 06/15/20 23:45 After IVF and pain meds in the ER, the patient improved and is currently stable for discharge. I performed a repeat exam and did not appreciate new abnormal findings. Patient exhibits normal vital signs and has a normal gait on road test. I advised the patient to return to the ER for reevaluation if symptoms worsened, including fever, worsening pain, or any other worrisome symptoms. I instructed the patient to follow up with their PCP within 2-3 days. MEDICAL DECISION MAKING: I reviewed the patients past medical records, lab and radiographic findings. I discussed the case with the patient. My differential diagnosis included: UTI, pyelo, ureteralithiasis. Departure - Departure Time of Disposition: 23:46 Disposition: Home, Self-Care 01 Condition: Good Clinical Impression: Abdominal pain, UTI (urinary tract infection) - Discharge Information *PRESCRIPTION DRUG MONITORING PROGRAM REVIEWED*: Not Applicable *COPY OF PRESCRIPTION DRUG MONITORING REPORT IN PATIENT ESTELITA: Not Applicable Prescriptions: cephALEXin [Keflex] 500 mg PO Q8H #15 cap Phenazopyridine [Pyridium] 100 mg PO TID PRN #15 tab PRN Reason: Abdominal Pain Instructions: Antibiotic Medicine, Adult, [id number], Urinary Tract Infecti on, Adult Referrals: Julisa Parisi ENRICHMENT ASSISTANT [Primary Care Provider] - 1 Week Forms: ED Department Discharge Additional Instructions: The need for follow-up, as well as the timing and circumstances, are variable depending upon the specifics of your emergency department visit. If you don't have a primary care physician on staff, we will provide you with a referral. We always advise you to contact your personal physician following an emergency department visit to inform them of the circumstance of the visit and for follow-up with them and/or the need for any referrals to a consulting specialist. The emergency department will also refer you to a specialist when appropriate. This referral assures that you have the opportunity for follow-up care with a specialist. All of these measure are taken in an effort to provide you with optimal care, which includes your follow-up. Under all circumstances we always encourage you to contact your private physician who remains a resource for coordinating your care. When calling for follow-up care, please make the office aware that this follow-up is from your recent emergency room visit. If for any reason you are refused follow-up, please contact the [facility] Emergency Department at and asked to speak to the emergency department charge nurse. If you do not have a primary care doctor, please follow up with the clinics below within 3-5 days. [facility] - Primary [facility] [address] [place] [address] [place] [address] Sepsis Event Note (ED) - Evaluation Sepsis Screening Result: Possible Sepsis Risk - Focused Exam Vital Signs: Vital Signs Temp Pulse Resp BP Pulse Ox 06/15/20 23:00 77 16 134/89 95 06/15/20 22:18 73 14 163/106 H 96 06/15/20 21:19 96.6 F L 96 16 124/94 H 97 - My Orders Last 24 Hours: My Active Orders 06/15/20 21:19 Sodium Chloride 0.9% [Saline Flush] 10 ml FLUSH ASDIRECTED PRN Sodium Chloride 0.9% [Saline Flush] 2.5 ml FLUSH ASDIRECTED PRN Saline Lock Insert [OM.PC] Stat 06/15/20 23:45 cefTRIAXone [Rocephin in Dextrose,Iso-Osm 1 GM/50 ML] 1 gm Premix Bag 1 bag IV ONETIME - Assessment/Plan Last 24 Hours: My Active Orders 06/15/20 21:19 Sodium Chloride 0.9% [Saline Flush] 10 ml FLUSH ASDIRECTED PRN Sodium Chloride 0.9% [Saline Flush] 2.5 ml FLUSH ASDIRECTED PRN Saline Lock Insert [OM.PC] Stat 06/15/20 23:45 cefTRIAXone [Rocephin in Dextrose,Iso-Osm 1 GM/50 ML] 1 gm Premix Bag 1 bag IV ONETIME
[2020-06-15 21:58] LABS: BLOOD UREA NITROGEN,BUN 4 mg/dL (7.0-18.0); CARBON DIOXIDE,CO2 28.6 mmol/L (21.0-32.0); CHLORIDE,CL 100 mmol/L (98-107); GLUCOSE RANDOM 101 mg/dL (74-106); LIPASE 46 U/L (73-393); POTASSIUM,K 3.9 mmol/L (3.5-5.1); SODIUM,NA 139 mmol/L (136-145)
--- NOTE | 2020-06-15 22:45 | CT ---
INDICATION: Abdominal pain nausea and vomiting. COMPARISON: 21 March 2020. TECHNIQUE: Noncontrast images. FINDINGS: No nephrolithiasis. Normal appendix. Small fat filled umbilical hernia. Chronic enlarged stool impacted presumed diverticulum or mild chronic focal aneurysmal dilatation in the junction of descending and sigmoid colon. Rounded area has diameter roughly 2.5 cm (image 118 series 202). Left femoral intramedullary nail. Small amount of air in the urinary bladder presumably iatrogenic. There was also air in the bladder on the comparison CT. IMPRESSION: 1. No new findings to account for reported symptoms. 2. Air in the urinary bladder may be iatrogenic. Similar appearance seen on comparison. Clinical correlation recommended. Colovesicular is a consideration. 3. Focal contour deformity of the proximal sigmoid colon looks like stool impacted large diverticulum. No acute inflammation. Please note that all CT scans at this facility use dose modulation, iterative reconstruction, and/or weight-based dosing when appropriate to reduce radiation dose to as low as reasonably achievable. Dictated by Arie Yost MD @ Jun 15 2020 10:38PM Signed by Dr. Arie Yost @ Jun 15 2020 10:44PM
[2020-06-15] MEDS ORDERED: Morphine 4 MG/ML Syringe IVPUSH ONE (23:06)
[2020-06-15] MEDS ORDERED: cefTRIAXone 1 GM in Premix Bag 1 BAG IV ONE (23:45)
== END 2020-06-16 00:25 | disposition home or self-care (01) ==
LOC: MW.ED 20:58
DX: N39.0 Urinary tract infection, site not specified (principal); J45.909 Unspecified asthma, uncomplicated; F17.210 Nicotine dependence, cigarettes, uncomplicated
CPT/HCPCS: 36415; 74176; 80053; 81001; 81025; 83605; 83690; 84703; 85025; 85610; 96365; 96375; 99284; A9270; J0696; J1885; J2270; J2405; J7120; 99283

== ENCOUNTER 2021-07-19 11:46 | Emergency (ER) | payer SELFPAY ==
[2021-07-19] MEDS ORDERED: Ketorolac 60 MG/2 ML SDV IM ONE (12:20)
--- NOTE | 2021-07-19 12:49 | EDM.PDOC ---
ED HPI GENERAL MEDICAL PROBLEM - General Chief Complaint: Back Pain or Injury Stated Complaint: CHEST PAIN Time Seen by Provider: 07/19/21 11:54 Source of Information: Reports: Patient History Limitations: Reports: No Limitations - History of Present Illness INITIAL COMMENTS - FREE TEXT/NARRATIVE: HISTORY AND PHYSICAL: History of present illness: Patient is a 50-year-old female who presents emergency room today with concern of back spasm that moves across her chest has been ongoing for the past 3 days. Patient states that the pain is worse with movements but states that she cannot always get it to recreate. Patient states she first noticed it on [place] and has continued since. Patient denies any worsening or alleviating factors. Patient denies any health history and states she has not taken anything for her symptoms. Patient states that the reason she was concerned is because the spasms started involving her chest and she wanted to be sure she was not missing anything. Patient states that she does not feel like she can massage it but it does feel similar to any possible spasm but "different" at the same time. Patient denies fever, chills, shortness of breath, or cough. Denies headache, neck stiff ness, change in vision, syncope, or near syncope. Denies nausea, vomiting, abdominal pain, diarrhea, constipation, or dysuria. Has not noted any blood in urine or stool. Patient has been eating and drinking appropriately. Review of systems: As per history of present illness and below otherwise all systems reviewed and negative. Past medical history: As per history of present illness and as reviewed below otherwise noncontributory. Surgical history: As per history of present illness and as reviewed below otherwise noncontributory. Social history: See social history for further information Family history: As per history of present illness and as reviewed below otherwise noncontributory. Physical exam: General: Patient is alert, oriented, and in no acute distress. Patient sitting comfortably on exam table. Vitals stable and reviewed by me HEENT: Atraumatic, normocephalic, pupils equal and reactive bilaterally, negative for conjunctival pallor or scleral icterus, mucous membranes moist, throat clear, neck supple, nontender, trachea midline. No drooling or trismus noted. No meningeal signs. No hot potato voice noted. Lungs: Clear to auscultation, breath sounds equal bilaterally, chest nontender. Heart: S1S2, regular rate and rhythm without overt murmur Abdomen: Soft, nondistended, nontender. Negative for masses or hepatosplenom egaly. Negative for costovertebral tenderness. Pelvis: Stable nontender. Genitourinary: Deferred. Rectal: Deferred. Skin: Intact, warm, dry. No lesions or rashes noted. Extremities: No obvious deformity in the complete spine. No step-offs, crepitus, or point tenderness to palpation of the complete spine. Patient has full range of motion of the complete spine and bilateral upper and lower extremities without pain or difficulty. Otherwise, atraumatic, negative for cords or calf pain. Neurovascular unremarkable. Neuro: Awake, alert, oriented. Cranial nerves II through XII unremarkable. Cerebellum unremarkable. Motor and sensory unremarkable throughout. Exam nonfocal. Medical Decision Making: Patient is an otherwise healthy 50-year-old female who presents emergency room today with concern of possible back spasm radiating to the front of her chest x3 days. Upon arrival to the ED, patient is vitally stable and well-appearing on exam and exam is otherwise unremarkable. Patient did become concerned today as it began involving the chest will obtain cardiac evaluation, provide a dose of Toradol, and reassess patient. See Dr. Christopher's dictation for specific EKG interpretation. Otherwise, NSR without STEMI. Mild derangements of CBC and CMP are unremarkable. hCG negative. Troponin negative. Chest x-ray unremarkable. HEART score low risk. Upon reevaluation of patient, treatments vitally stable and comfortable throughout stay in ED. Strict return precautions thoroughly discussed with patient. Discussed importance for follow-up with a primary care provider. Voices understanding and is agreeable to plan of care. Denies any further questions or concerns at this time. Diagnostics: CBC, CMP, CXR, Trop, EKG Therapeutics: Toradol Prescription: None Impression: Atypical chest pain Muscle spasm Plan: 1. You can alternate ibuprofen and Tylenol as directed for pain and discomfort. 2. Follow-up with a primary care provider as discussed. Return to the ED as needed and as discussed. Definitive disposition and diagnosis as appropriate pending reevaluation and review of above. 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 ED EXAM, GENERAL - Physical Exam Exam: See Below (see dictation) Course - Vital Signs Last Recorded V/S: Last Vital Signs Temp 97.2 F 07/19/21 14:05 Pulse 80 07/19/21 14:05 Resp 18 07/19/21 14:05 BP 126/84 07/19/21 14:05 Pulse Ox 97 07/19/21 14:05 - Orders/Labs/Meds Labs: Laboratory Tests 07/19/21 07/19/21 07/19/21 Range/Units 12:53 12:53 12:53 WBC 7.16 (4.0-11.0) K/uL RBC 4.85 (4.30-5.90) M/uL Hgb 13.4 (12.0-16.0) g/dL Hct 41.8 (36.0-46.0) % MCV 86.2 (80.0-98.0) fL MCH 27.6 (27.0-32.0) pg MCHC 32.1 (31.0-37.0) g/dL RDW Std Deviation 45.7 (28.0-62.0) fl RDW Coeff of Graciela 15 (11.0-15.0) % Plt Count 237 (150-400) K/uL MPV 10.60 (7.40-12.00) fL Neut % (Auto) 61.5 (48.0-80.0) % Lymph % (Auto) 30.3 (16.0-40.0) % Hendry % (Auto) 5.7 (0.0-15.0) % Eos % (Auto) 2.2 (0.0-7.0) % Baso % (Auto) 0.3 (0.0-1.5) % Neut # (Auto) 4.4 (1.4-5.7) K/uL Lymph # (Auto) 2.2 (0.6-2.4) K/uL Hendry # (Auto) 0.4 (0.0-0.8) K/uL Eos # (Auto) 0.2 (0.0-0.7) K/uL Baso # (Auto) 0.0 (0.0-0.1) K/uL Nucleated RBC % 0.0 /100WBC Nucleated RBCs # 0 K/uL Sodium 141 (136-145) mmol/L Potassium 4.0 (3.5-5.1) mmol/L Chloride 104 (98-107) mmol/L Carbon Dioxide 31.2 (21.0-32.0) mmol/L BUN 7 (7.0-18.0) mg/dL Creatinine 0.6 (0.6-1.0) mg/dL Est Cr Clr Drug Dosing 93.82 mL/min Estimated GFR (MDRD) > 60.0 ml/min Glucose 84 (74-106) mg/dL Calcium 8.9 (8.5-10.1) mg/dL Total Bilirubin 0.4 (0.2-1.0) mg/dL AST 15 (15-37) IU/L ALT 15 (14-63) IU/L Alkaline Phosphatase 85 (46-116) U/L Troponin I < 0.050 (0.000-0.056) ng/mL Total Protein 7.1 (6.4-8.2) g/dL Albumin 3.1 L (3.4-5.0) g/dL Globulin 4.0 (2.6-4.0) g/dL Albumin/Globulin Ratio 0.8 L (0.9-1.6) HCG, Qual NEGATIVE (NEG) Meds: Medications Discontinued Medications Generic Name Dose Route Start Last Admin Trade Name Freq PRN Reason Stop Dose Admin Ketorolac Tromethamine 60 mg 07/19/21 12:20 07/19/21 13:09 Ketorolac 60 Mg/2 Ml Sdv IM 07/19/21 12:21 60 mg ONETIME ONE Administration Departure - Departure Time of Disposition: 13:56 Disposition: Home, Self-Care 01 Clinical Impression: Atypical chest pain, Muscle spasm - Discharge Information Instructions: Muscle Cramps and Spasms, Chest Wall Pain, [id number] Forms: ED Department Discharge Additional Instructions: The following information is given to patients seen in the emergency department who are being discharged to home. This information is to outline your options for follow-up care. We provide all patients seen in our emergency department with a follow-up referral. The need for follow-up, as well as the timing and circumstances, are variable depending upon the specifics of your emergency department visit. If you don't have a primary care physician on staff, we will provide you with a referral. We always advise you to contact your personal physician following an emergency department visit to inform them of the circumstance of the visit and for follow-up with them and/or the need for any referrals to a consulting specialist. The emergency department will also refer you to a specialist when appropriate. This referral assures that you have the opportunity for follow-up care with a specialist. All of these measure are taken in an effort to provide you with optimal care, which includes your follow-up. Under all circumstances we always encourage you to contact your private physician who remains a resource for coordinating your care. When calling for follow-up care, please make the office aware that this follow-up is from your recent emergency room visit. If for any reason you are refused follow-up, please contact the [facility] Emergency Department at and asked to speak to the emergency department charge nurse. [facility] [address] [place] [address] [id number] [address] [id number] 1. You can alternate ibuprofen and Tylenol as directed for pain and discomfort. 2. Follow-up with a primary care provider as discussed. Return to the ED as needed and as discussed. Sepsis Event Note (ED) - Evaluation Sepsis Screening Result: No Definite Risk - Focused Exam Vital Signs: Vital Signs Temp Pulse Resp BP Pulse Ox 07/19/21 14:05 97.2 F 80 18 126/84 97 07/19/21 11:59 96.7 F L 95 17 129/88 99
--- NOTE | 2021-07-19 13:00 | PCM.EKG ---
#1 Interpretation EKG Date: 07/19/21 Time: 12:53 Rhythm: NSR Rate (Beats/Min): 83 [place]: Normal ST-T: Normal
[2021-07-19 13:46] LABS: BLOOD UREA NITROGEN,BUN 7 mg/dL (7.0-18.0); CARBON DIOXIDE,CO2 31.2 mmol/L (21.0-32.0); CHLORIDE,CL 104 mmol/L (98-107); GLUCOSE RANDOM 84 mg/dL (74-106); SODIUM,NA 141 mmol/L (136-145)
--- NOTE | 2021-07-19 13:47 | CR ---
INDICATION: Chest pain TECHNIQUE: Single view chest. FINDINGS: The lungs are clear. The heart, mediastinum and pulmonary vessels are of normal size. There is no evidence of pleural disease. IMPRESSION: Negative chest. Dictated by Fern Sequeira MD @ 07/19/2021 1:45:51 PM (Electronically Signed)
== END 2021-07-19 14:08 | disposition home or self-care (01) ==
LOC: MW.ED 11:46
DX: R07.89 Other chest pain (principal); M62.830 Muscle spasm of back; J45.909 Unspecified asthma, uncomplicated
CPT/HCPCS: 36415; 71045; 80053; 84484; 84703; 85025; 93005; 96372; 99285; J1885

== ENCOUNTER 2021-08-05 14:25 | Emergency (ER) | payer SELFPAY | END 2021-08-05 17:33 | disposition home or self-care (01) | LOC: MW.ED 14:25 | DX: S49.92XA Unspecified injury of left shoulder and upper arm, initial encounter (principal); Z72.0 Tobacco use; W01.0XXA Fall on same level from slipping, tripping and stumbling without subsequent striking against object, initial encounter | CPT/HCPCS: 73030-26-LT; 73030-LT; 73080-26-LT; 73080-LT; 99283-25 ==

== ENCOUNTER 2021-09-11 15:49 | Emergency (ER) | payer SELFPAY ==
[2021-09-11 17:37] LABS: BLOOD UREA NITROGEN,BUN 7 mg/dL (7.0-18.0); CARBON DIOXIDE,CO2 30.5 mmol/L (21.0-32.0); CHLORIDE,CL 102 mmol/L (98-107); GLUCOSE RANDOM 88 mg/dL (74-106); LIPASE 33 U/L (73-393); POTASSIUM,K 4.3 mmol/L (3.5-5.1); SODIUM,NA 139 mmol/L (136-145)
[2021-09-11] MEDS ORDERED: cefTRIAXone 1 GM Vial IM ONE (18:28)
[2021-09-11] MEDS ORDERED: Lidocaine 1% PF 2 ML SDV INJECT ONE (18:49)
== END 2021-09-11 19:13 | disposition home or self-care (01) ==
LOC: MW.ED 15:49
DX: N30.01 Acute cystitis with hematuria (principal)
CPT/HCPCS: 36415; 80053; 81001; 81025; 83690; 85025; 87086; 87088; 87186; 96372; 99284; J0696; 99283

== ENCOUNTER 2023-07-14 18:41 | Emergency (ER) | payer BC | END 2023-07-14 20:43 | disposition home or self-care (01) | LOC: MW.ED 18:41 | DX: R22.41 Localized swelling, mass and lump, right lower limb (principal); Z79.899 Other long term (current) drug therapy | CPT/HCPCS: 93971-26-RT; 93971-RT; 99283 ==

== ENCOUNTER 2023-08-17 20:33 | Emergency (ER) | payer BC ==
[2023-08-17 22:46] LABS: CORONAVIRUS COVID-19 NAA NEGATIVE (NEGATIVE); INFLUENZA A NAA NEGATIVE (NEGATIVE); INFLUENZA B NAA NEGATIVE (NEGATIVE); RESPIRATORY SYNCYTIAL VIR NAA NEGATIVE (NEGATIVE)
== END 2023-08-18 00:20 | disposition home or self-care (01) ==
LOC: MW.ED 20:33
DX: J00 Acute nasopharyngitis [common cold] (principal); J45.909 Unspecified asthma, uncomplicated; Z79.899 Other long term (current) drug therapy
CPT/HCPCS: 0241U; 87651; 99283

== ENCOUNTER 2023-09-05 16:20 | Emergency (ER) | payer BC | END 2023-09-05 19:55 | disposition home or self-care (01) | LOC: MW.ED 16:20 | DX: R60.0 Localized edema (principal); M79.661 Pain in right lower leg; M79.662 Pain in left lower leg; M79.671 Pain in right foot; J45.909 Unspecified asthma, uncomplicated; E66.9 Obesity, unspecified; Z79.899 Other long term (current) drug therapy | CPT/HCPCS: 73630-26-RT; 73630-RT; 99283 ==

== ENCOUNTER 2024-03-09 13:58 | Emergency (ER) | payer BC | END 2024-03-09 14:38 | disposition left against medical advice (07) | LOC: MW.ED 13:58 | DX: Z53.21 Procedure and treatment not carried out due to patient leaving prior to being seen by health care provider (principal) ==

== ENCOUNTER 2024-10-25 11:56 | Emergency (ER) | payer BC | END 2024-10-25 13:45 | disposition home or self-care (01) | LOC: MW.ED 11:56 | DX: J32.9 Chronic sinusitis, unspecified (principal); E66.9 Obesity, unspecified; Z79.899 Other long term (current) drug therapy; Z75.8 Other problems related to medical facilities and other health care; Z68.42 Body mass index [BMI] 45.0-49.9, adult | CPT/HCPCS: 99283 ==

== ENCOUNTER 2024-11-14 19:56 | Emergency (ER) | payer BC ==
[2024-11-14] MEDS: oxyCODONE 5 MG Tab PO ONE (20:33)
== END 2024-11-14 22:02 | disposition home or self-care (01) ==
LOC: MW.ED 19:56
DX: M54.41 Lumbago with sciatica, right side (principal); Z79.899 Other long term (current) drug therapy
CPT/HCPCS: 96372; 99283; A9270; J1100